=== PATIENT | male | born 1975 | race African-American/Black ===

== ENCOUNTER 2017-03-29 02:16 | Emergency (ER) | payer OTHER ==
[~2017-03-29] VITALS: Ht 172.7 cm; Wt 90.7 kg
[2017-03-29 02:16] VITALS: BP 116/68
== END 2017-03-29 03:11 | disposition home or self-care (01) ==
LOC: ER 02:18
DX: N48.5 Ulcer of penis (principal); L30.9 Dermatitis, unspecified; F20.9 Schizophrenia, unspecified; F31.9 Bipolar disorder, unspecified; F43.10 Post-traumatic stress disorder, unspecified; Z59.0 Homelessness
CPT/HCPCS: 99283; A4606; Z7610